=== PATIENT | female | born 1995 | race Hispanic/Latino ===

== ENCOUNTER 2021-07-09 08:21 | Emergency (ER) | payer OTHER ==
[~2021-07-09] VITALS: Ht 165.1 cm; Wt 90.0 kg
[2021-07-09] MEDS ORDERED: FEROSUL325 MG PO (09:33)
[2021-07-09] MEDS ORDERED: PRENATABS RX T1 EACH (09:33)
[2021-07-09] MEDS ORDERED: CEPHALEXIN500 MG PO (09:45)
== END 2021-07-09 09:53 | disposition home or self-care (01) ==
LOC: FSED 09:43
DX: O23.42 Unspecified infection of urinary tract in pregnancy, second trimester (principal); R30.0 Dysuria
CPT/HCPCS: 81003; 81025; 99283

== ENCOUNTER 2022-01-17 20:51 | Emergency (ER) | payer OTHER ==
[~2022-01-17] VITALS: Ht 165.1 cm; Wt 77.1 kg
[~2022-01-17 20:51] MED LIST: CEPHALEXIN500 MG PO; FEROSUL325 MG PO; PRENATABS RX T1 EACH
[2022-01-17] MEDS ORDERED: PREDNISONE20 MG PO (21:53)
[2022-01-17] MEDS ORDERED: FAMOTIDINE40 MG PO (21:53)
[2022-01-17] MEDS ORDERED: HYDROXYZINE HCL25 MG PO (21:54)
[2022-01-17] MEDS ORDERED: CETIRIZINE HCL10 MG PO (21:55)
[2022-01-17] MEDS ORDERED: FAMOTIDINE 20 MG TAB PO ONE (22:00)
[2022-01-17] MEDS ORDERED: PREDNISONE 20 MG TAB PO ONE (22:00)
[2022-01-17] MEDS ORDERED: PREDNISONE 20 MG TAB ONE (22:02)
[2022-01-17] MEDS ORDERED: FAMOTIDINE 20 MG TAB ONE (22:03)
== END 2022-01-17 22:15 | disposition home or self-care (01) ==
LOC: FSED 21:31
DX: R21 Rash and other nonspecific skin eruption (principal); L29.9 Pruritus, unspecified
CPT/HCPCS: 99283; J7512

== ENCOUNTER 2024-04-06 12:57 | Emergency (ER) | payer OTHER ==
[~2024-04-06] VITALS: Ht 160 cm; Wt 89.8 kg
[~2024-04-06 12:57] MED LIST changes: +CETIRIZINE HCL10 MG PO; +FAMOTIDINE40 MG PO; +HYDROXYZINE HCL25 MG PO; +PREDNISONE20 MG PO
[2024-04-06 13:03] VITALS: PULSE 113; RESP 18; TEMP 98.7
[2024-04-06] MEDS ORDERED: TAMIFLU75 MG PO (14:47)
[2024-04-06] MEDS ORDERED: AMOXICILLIN500 MG PO (14:47)
[2024-04-06] MEDS ORDERED: IBUPROFEN600 MG PO (14:48)
[2024-04-06] MEDS: IBUPROFEN 600 MG TAB PO STA (14:51)
[2024-04-06 14:58] VITALS: BP 123/87; PULSE 105; RESP 18; TEMP 98.9; O2SAT 98
== END 2024-04-06 15:00 | disposition home or self-care (01) ==
LOC: FSED 13:15
DX: R51.9 Headache, unspecified (principal); J10.1 Influenza due to other identified influenza virus with other respiratory manifestations; B34.9 Viral infection, unspecified; Z11.52 Encounter for screening for COVID-19
CPT/HCPCS: 0223U; 83518; 87400; 99283